=== PATIENT | male | born 1990 | race Caucasian/White ===

== ENCOUNTER 2017-06-05 00:54 | Emergency (ER) | payer OTHER ==
[~2017-06-05] VITALS: Ht 182.9 cm; Wt 90.7 kg
--- NOTE | 2017-06-05 01:46 | ED PSYCHIATRIC COMPLAINT ---
History of Present Illness General Chief Complaint: ETOH/Drug Related Complaint Stated Complaint: ETOH Source: patient, EMS Exam Limitations: intoxication Vital Signs & Intake/Output Vital Signs & Intake/Output Vital Signs Date Time Temp Pulse Resp B/P B/P Pulse O2 O2 Flow FiO2 Mean Ox Delivery Rate 06/05 0822 98.6 76 18 116/84 98 Room Air 06/05 0712 97.9 88 18 114/66 96 Room Air 06/05 0125 100.2 118 18 129/67 97 Room Air Triage Note: PT BIBA AFTER DRINKING "TOO MUCH TO REMEMBER" AND WANDERING AROUND IN THE [place]". PT REPORTS HE IS UNABLE TO RECALL HOW MUCH HE DRANK OR HOW HE ENDED UP IN THE [place]. DENIES DRUG USE. PT ARRIVES AWAKE AND ALERT AND SPEAKING IN FULL COMPLETE SENTENCES. SKIN ARE FLUSHED. SKIN IS WARM AND DRY. Triage Nurses Notes Reviewed? yes Onset: Abrupt Duration: minute(s): (FEW) Timing: single episode today Severity: mild, moderate Associated Symptoms: ALCOHOL INTOXICATION, ATAXIA HPI: This is a 26 year old male who presents to the ER for chief complaint of being found in the [place] by the civil [place] deputy sheriff. He states he was visiting a friend who's dog one year ago and had too much to drink. He denies any drug use. Patient states that he had a bunch to drink and then thinks he just raced off to the smiht. He was not trying to hurt himself. He is not suicidal or homicidal. No hallucinations. He states he does not drink on a daily basis but did drink today after being alcohol free for 2 weeks. Denies any illicit substance use. Patient states that he lives in [place] and that in the morning somebody will be able to come and pick him up to take him to his car. (Bozena LOPEZ,Karla) Allergies Coded Allergies: No Known Allergies (06/05/17) (Tammie LOPEZ,Javon) Past History Travel History Traveled to [place] past 21 day No Medical History Any Pertinent Medical History? see below for history Neurological: NONE EENT: NONE Cardiovascular: NONE Respiratory: NONE Gastrointestinal: NONE Hepatic: NONE Renal: NONE Musculoskeletal: NONE Psychiatric: NONE Endocrine: NONE Blood Disorders: NONE Cancer(s): NONE GRAIN CLEANER/Reproductive: NONE Surgical History Surgical History: non-contributory Psychosocial History What is your primary language Liberian Tobacco Use: Never used Daily Tobacco Use Amount/Type: =< 4 Cigarettes daily ETOH Use: heavy use Illicit Drug Use: denies illicit drug use Family History Hx Contributory? No (Karla Seals MD) Review of Systems Review of Systems Constitutional: Denies: diaphoresis, fever. EENTM: Reports: no symptoms. Respiratory: Reports: no symptoms. Cardiovascular: Denies: chest pain, palpitations, peripheral edema. GI: Denies: abdominal pain, nausea, vomiting. Genitourinary: Denies: discharge, dysuria. Musculoskeletal: Reports: no symptoms. Skin: Reports: no symptoms. Neurological/Psychological: Reports: ataxia, confusion. Hematologic/Endocrine: Denies: bruising, bleeding, polyuria, polydipsia. Immunologic/Allergic: Reports: no symptoms. All Other Systems: Reviewed and Negative (Karla Seals MD) Physical Exam Physical Exam General Appearance: well developed/nourished, alert, awake, mild distress Head: atraumatic Eyes: Bilateral: PERRL, EOMI. Ears, Nose, Throat: normal pharynx, normal ENT inspection, hearing grossly normal Neck: normal inspection, supple Respiratory: normal breath sounds Cardiovascular: regular rate/rhythm Gastrointestinal: soft, non-tender Extremities: normal range of motion Neurological/Psychiatric: no motor/sensory deficits, awake, alert, anxious Appearance/Memory/Insight: impaired insight, neat Behavoir/Eye Contact/Speech: cooperative, normal speech, good eye contact Thoughts/Hallucinations: no apparent hallucination Skin: intact, normal color, warm/dry SAD PERSONS Done? patient not suicidal (Karla Seals MD) Progress Differential Diagnosis: ALCOHOL INTOXICATION Plan of Care: 2 AM BREATHALYZED 0.238 Patient awake alert, oriented. He states in the morning he can call a friend to pick him up. Hand-Off Endorsed To: Javon Cho MD Endorsed Time: 0700 Pending: other (SOBRIETY, RIDE HOME) (Karla Seals MD) Departure Departure Disposition: HOME OR SELF CARE Condition: Stable Clinical Impression Primary Impression: Alcohol intoxication Referrals: Unknown (PCP/Family) Additional Instructions: AVOID EXCESSIVE ALCOHOL CONSUMPTION RETURN NEEDED Departure Forms: Customer Survey General Discharge Information (Karla Seals MD)
[2017-06-05 08:22] VITALS: BP 116/84
== END 2017-06-05 08:23 ==
LOC: ERH 00:54
DX: F10.129 Alcohol abuse with intoxication, unspecified (principal)